=== PATIENT | male | born 1990 | race Caucasian/White ===

== ENCOUNTER 2022-06-22 09:10 | Emergency (ER) | payer OTHER ==
[2022-06-22 09:22] VITALS: BP 136/69
--- NOTE | 2022-06-22 09:38 | ED Physician Documentation ---
History of Present Illness - Stated complaint Stated Complaint: RT FT INJ - Chief complaint Chief Complaint: Wound - History obtained from History obtained from: Patient - History of Present Illness Timing: Last night Pain level max: 3 Pain level now: 2 - Additonal information Additional information: 32-year-old male presents to the emergency department with right foot injury. This occurred last night. He was walking and accidentally stepped on a nail. He went to the [facility] today and they recommended that he come here for evaluation. He is active duty [employer]. Tetanus up-to-date. Worse with walking, better with rest. Review of Systems Constitutional: denies: Fever, Chills Respiratory: denies: Cough GI: denies: Nausea, Vomiting, Diarrhea Skin: denies: Rash PD PAST MEDICAL HISTORY - Past Medical History Past Medical History: No - Past Surgical History Past Surgical History: No - Present Medications Home Medications: Ambulatory Orders Medication Instructions Recorded Confirmed cephALEXin [Keflex] 500 mg PO Q6H #28 cap 06/22/22 - Allergies Allergies/Adverse Reactions: Allergies Allergy/AdvReac Type Severity Reaction Status Date / Time No Known Drug Allergies Allergy Verified 06/22/22 09:18 PD ED PE NORMAL - Vitals Vital signs reviewed: Yes - General General: Alert and oriented X 3, No acute distress - Derm Derm: Warm and dry - Neuro Neuro: Alert and oriented X 3 PD ED PE EXPANDED - Extremities Feet visual: 1 - laceration (Puncture wound, not bleeding. Mild erythema surrounding. NVI) Results - Vitals Vitals: Vital Signs - 24 hr 06/22/22 09:18 Temperature 36.5 C Heart Rate 90 Respiratory 16 Rate Blood Pressure 136/69 H O2 Saturation 100 Oxygen O2 Source Room air PD Medical Decision Making - ED course Complexity details: considered differential, d/w patient ED course: 32-year-old male accidentally stepped on a nail last night. Has a small amount of erythema around the wound. He was wearing shoes. Recommend local wound care. Given the small amount of erythema, we will place on Keflex. Patient was given information regarding wound care and signs of ongoing infection. Tetanus up-to-date. Patient counseled regarding signs and symptoms for which I believe and urgent re-evaluation would be necessary. Patient with good understanding of and agreement to plan and is comfortable going home at this time This document was made in part using voice recognition software. While efforts are made to proofread this document, sound alike and grammatical errors may occur. Departure - Departure Disposition: 01 Home, Self Care Clinical Impression: Nail wound of plantar aspect of foot Condition: Good Instructions: ED Wound Puncture Foot Follow-Up: your,doctor in 1 week [Other] Prescriptions: cephALEXin [Keflex] 500 mg PO Q6H #28 cap Comments: Your prescription was sent to [facility] in [place]. Please soak the wound 2-3 times daily in warm water. Please return if you notice redness, swelling or drainage from the wound. Take all antibiotics until gone.
== END 2022-06-22 09:42 | disposition home or self-care (01) ==
LOC: ED 09:10
DX: S91.331A Puncture wound without foreign body, right foot, initial encounter (principal); W22.8XXA Striking against or struck by other objects, initial encounter; Y93.01 Activity, walking, marching and hiking; Y92.9 Unspecified place or not applicable
CPT/HCPCS: 99281; 99283